=== PATIENT | male | born 1990 | race Caucasian/White ===

== ENCOUNTER 2017-11-03 16:21 | Inpatient (IN) | payer OTHER ==
[~2017-11-03] VITALS: Ht 170.2 cm; Wt 61.2 kg
--- NOTE | 2017-11-03 18:36 | ED PSYCHIATRIC COMPLAINT ---
History of Present Illness General Chief Complaint: Psychiatric Related Complaint Stated Complaint: PT IS SCHIZOPRENIC Source: patient Exam Limitations: no limitations Vital Signs & Intake/Output Vital Signs & Intake/Output Vital Signs Date Time Temp Pulse Resp B/P B/P Pulse O2 O2 Flow FiO2 Mean Ox Delivery Rate 11/04 1402 98.2 82 18 119/74 99 Room Air 11/04 1130 97.4 86 16 119/69 99 Room Air 11/04 0926 98.5 79 16 122/74 100 Room Air 11/04 0622 98.4 74 16 118/70 100 Room Air 11/03 2140 98.9 69 16 112/64 97 Room Air 11/03 1930 99.2 88 18 120/70 99 Room Air 11/03 1631 98.5 104 17 137/82 97 Room Air ED Intake and Output 11/04 0000 11/03 1200 Intake Total 0 Output Total 0 Balance 0 Intake, Oral 0 Output, Urine 0 Allergies Coded Allergies: NO KNOWN ALLERGIES (06/23/15) Reconcile Medications No Known Home Medications Triage Note: PT TO ED WITH MOTHER WITH REPORT OF RACING THOUGHTS, INSOMNIA X 48 HOURS, AUDITORY HALLUCINATIONS. NOT CURRENTLY PRESCRIBED ANY MEDS. PER MOTHER, HX OF SCHIZOAFFECTIVE DISORDER. Triage Nurses Notes Reviewed? yes HPI: Patient presents for evaluation of feeling confused today. He had a little trouble explaining himself and so additional history has been obtained from his mother who confirms that his mind was "racing" and that he "was fighting inside his head". He has been depressed and withdrawn and not eating much. Mother states he had similar episode about 2 years ago and was treated with Zyprexa with some improvement. The patient himself states that "earlier today he got a message through" and that the "whole day was all off" and he thought about "jumping off something". (Suzanne RIVERO,Inocente Alonso) Past History Travel History Traveled to [place] past 21 day No Medical History Any Pertinent Medical History? see below for history Neurological: NONE EENT: NONE Cardiovascular: NONE Respiratory: NONE Gastrointestinal: NONE Hepatic: NONE Renal: NONE Musculoskeletal: NONE Psychiatric: substance abuse, SCHIZOAFFECTIVE Endocrine: NONE Blood Disorders: NONE Cancer(s): NONE Surgical History Surgical History: non-contributory Psychosocial History Who do you live with Mother What is your primary language Botswanan Tobacco Use: Never used ETOH Use: denies use Illicit Drug Use: marijuana Family History Hx Contributory? No (uSzanne RIVERO,Inocente Alonso) Review of Systems Review of Systems Constitutional: Reports: no symptoms. EENTM: Reports: no symptoms. Respiratory: Reports: no symptoms. Cardiovascular: Reports: no symptoms. GI: Reports: no symptoms. Genitourinary: Reports: no symptoms. Musculoskeletal: Reports: no symptoms. Skin: Reports: no symptoms. Neurological/Psychological: Reports: see HPI. Hematologic/Endocrine: Reports: no symptoms. Immunologic/Allergic: Reports: no symptoms. All Other Systems: Reviewed and Negative (Suzanne RIVERO,Inocente Alonso) Physical Exam Physical Exam General Appearance: SEE BELOW Neurological/Psychiatric: SEE BELOW Comments: Gen.: Well-nourished, well-developed, no acute respiratory distress. Head: Normocephalic, atraumatic. Eyes: Normal inspection bilaterally Ears: Normal inspection bilaterally Nose: Normal inspection Throat/mouth : Moist mucosa Neck: Supple, full range of motion, no goiter Heart: Regular rate and rhythm, no murmurs rubs or gallops Lungs: Clear to auscultation bilaterally with normal air entry Chest: Nontender Back: Normal range of motion Abdomen: Soft, nontender, nondistended, normal bowel sounds Extremities: Normal range of motion grossly, equal radial pulses, no cyanosis clubbing or edema Neurologic: Cranial nerves grossly intact, speech is clear Skin: warm and dry Psychiatric: Calm, cooperative, no apparent delusions or hallucinations SAD PERSONS Done? deferred to crisis (Suzanne RIVERO,Inocente Alonso) Progress Differential Diagnosis: drug intoxication, bipolar disorder, personality disorder, schizoaffective disorder Plan of Care: Orders Procedure Date/time Status Regular Diet 11/04 D Active Regular Diet 11/04 B Complete Admit to inpatient psych 11/04 1347 Active Lab Add-on Test 11/04 1338 Active Patient Data - inpatient psych 11/04 1333 Active Admit to inpatient psych 11/04 1333 Active Patient Safety Monitor 11/04 0700 Active Patient Safety Monitor 11/04 0300 Active Vital Signs 11/04 UNK Active Nursing Misc 11/04 UNK Active Alternative Nursing Therapy 11/04 UNK Active Activity/Ambulation 11/04 UNK Active Patient Safety Monitor 11/03 2300 Active Add-on Test (ER Only) 11/03 2247 Active Intake & Output 11/03 1914 Active Patient Safety Monitor 11/03 1899 Active URINALYSIS 11/03 1899 Complete TSH REFLEX 11/03 185 Complete LIPID PANEL 11/03 185 Complete GLYCOSYLATED HGB 11/03 1852 Complete Patient Safety Monitor 11/03 183 Active URINE DRUG SCREEN FOR ER ONLY 11/03 183 Complete ETHANOL 11/03 183 Complete CBC WITHOUT DIFFERENTIAL 11/03 183 Complete BASIC METABOLIC PANEL 11/03 183 Complete ED CRISIS PSYCH CONSULT 11/03 183 Active Current Medications Sig/Marian Start time Last Medication Dose Stop Time Status Admin Olanzapine 10 MG 0800 11/05 08 CAN (Zyprexa) Olanzapine 15 MG AT BEDTIME 11/04 2100 AC (Zyprexa) Acetaminophen 650 MG Q6P PRN 11/04 1345 AC (Tylenol) Al Hydroxide/Mg 30 ML Q4-6 PRN PRN 11/04 1345 AC Hydroxide (Maalox Plus) Benztropine Mesylate 1 MG Q6P PRN 11/04 1345 AC (Cogentin 1 MG Tablet) Benztropine Mesylate 1 MG Q6P PRN 11/04 1345 AC (Cogentin) Gabapentin 300 MG Q6P PRN 11/04 1345 AC (Neurontin) Haloperidol 5 MG Q6P PRN 11/04 1345 AC (Haldol) Haloperidol 5 MG Q6P PRN 11/04 1345 AC (Haldol) Lorazepam 2 MG Q6P PRN 11/04 1345 AC (Ativan) Magnesium Hydroxide 30 ML AT BEDTIME PRN 11/04 1345 AC (Milk Of Magnesia) Trazodone HCl 50 MG AT BEDTIME NEED.. 11/04 134 AC (Desyrel) Olanzapine 10 MG ONCE ONE 11/03 2044 CAN (ZyPREXA) 11/03 2045 Laboratory Tests 11/03/171899: Urine Color YEL, Urine Clarity CLEAR, Urine pH 6.0, Ur Specific [place] 1.015, Urine Protein NEG, Urine Ketones NEG, Urine Nitrite NEG, Urine Bilirubin NEG, Urine Urobilinogen 0.2, Ur Leukocyte Esterase NEG, Ur Microscopic EXAM NOT REQUIRED, Urine Hemoglobin NEG, Urine Glucose NEG 11/03/171852: Anion Gap 13, Estimated GFR > 60, BUN/Creatinine Ratio 15.7, Glucose 141 H, Hemoglobin A1c 5.4, Calcium 10.2, Triglycerides 48, Cholesterol 175, LDL Cholesterol, Calc 120, HDL Cholesterol 46, Cholesterol/HDL Ratio 4, TSH &T3 & Free T4 Intrp 1.130, CBC w Diff MAN DIFF ORDERED, RBC 4.35 L, MCV 92.2, MCH 31.5 H, MCHC 34.2, RDW 13.3, MPV 8.7, Gran % 87.6 H, Lymphocytes % 6.5 L, Monocytes % 5.2, Eosinophils % 0, Basophils % 0.7, Absolute Granulocytes 18.6 H , Segmented Neutrophils 90 H, Band Neutrophils 3, Absolute Lymphocytes 1.4, Lymphocytes 5 L, Monocytes 2, Absolute Monocytes 1.1 H, Absolute Eosinophils 0 , Absolute Basophils 0.2, Platelet Estimate ADEQUATE, Normocytic RBCs VERIFIED, Normochromic RBCs VERIFIED, Fld Total RBCs Counted 100, Serum Alcohol < 10.0 11/03/17 1820: Urine Opiates Screen < 100, Methadone Screen < 40, Barbiturate Screen < 60, Ur Phencyclidine Scrn < 6.00, Amphetamines Screen < 100, U Benzodiazepines Scrn < 85, Urine Cocaine Screen < 50, Urine Cannabis Screen > 80.00 H Comments: 11/03/2017 7:26:16 PM patient signed out to Dr. Bowden at [employer]. (Suzanne RIVERO,Inocente Alonso) Hand-Off Endorsed To: Abelino Alejo MD Endorsed Time: 0700 Pending: other (crisis re-eval) (Leroy Bowden MD) Departure Departure Disposition: STILL A PATIENT Condition: Stable Clinical Impression Primary Impression: Confusion Referrals: Efren Caballero APRN (PCP/Family) Departure Forms: Customer Survey General Discharge Information Prescriptions: Current Visit Scripts No Known Home Medications (Suzanne RIVERO,Inocente Alonso) Departure Comments Patient seen by crisis and to be admitted to psychiatry. Medically cleared. (Abelino Alejo MD)
[2017-11-03 19:06] LABS: ABSOLUTE BASOPHIL COUNT 0.2 /CUMM (0.0-0.2); ABSOLUTE EOSINOPHIL COUNT 0 /CUMM (0.0-0.7); ABSOLUTE GRANULOCYTE CT 18.6 /CUMM (1.4-6.5); ABSOLUTE LYMPH COUNT 1.4 /CUMM (1.2-3.4); ABSOLUTE MONOCYTE COUNT 1.1 /CUMM (0.10-0.60); BASOPHIL % 0.7 % (0.0-2.0); EOSINOPHIL % 0 % (0-5); GRANULOCYTE % 87.6 % (42.2-75.2); HEMATOCRIT 40.1 % (42-52); MEAN CORPUSCULAR HGB 31.5 PG (27.0-31.0); MEAN CORPUSCULAR HGB CONC 34.2 G/DL (33.0-37.0); MEAN CORPUSCULAR VOLUME 92.2 FL (80.0-94.0); MEAN PLATELET VOLUME 8.7 FL (7.4-10.4); PLATELET COUNT 321 /CUMM (130-400); RBC DISTRIBUTION WIDTH 13.3 % (11.5-14.5); RED BLOOD CELL CT 4.35 /CUMM (4.70-6.10); WHITE BLOOD CELL COUNT 21.3 /CUMM (4.8-10.8)
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
--- NOTE | 2017-11-03 23:13 | RADIOLOGY REPORT ---
EXAMINATION: XR CHEST CLINICAL INFORMATION: Leukocytosis COMPARISON: Chest x-ray 11/07/2012 TECHNIQUE: 2 views of the chest were obtained. FINDINGS: No significant abnormality is noted involving the heart, lungs, mediastinum, bony thorax or soft tissues. IMPRESSION: Unremarkable examination.
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
[2017-11-04 20:03] VITALS: BP 148/96
--- NOTE | 2017-11-04 22:11 | History & Physical ---
General Information and HPI MD Statement: I have seen and personally examined SUMMER SAM and documented this H&P. The patient is a 27 year old M who was admitted for disorganized behavior due to bipolar manic episodes. Source of Information: patient Exam Limitations: no limitations History of Present Illness: Mr. Morris is 27 years old male who was admitted for various psychiatric complaints(see the psychiatric history and physical). Patient has a history of bipolar disorder. With prior admissions to the [facility] hospital. Denies having any medical issues. Patient had multiple teeth pulled approximately 4 weeks ago. He had false teeth and dental fillings. Patient complains some nasal congestion and stuffiness. He also admitted taking 3 pills of amoxicillin. Denied having any fever, cough, shortness of breath or other complaints. He had some abrasion over his left leg below the knee due to fall recently. Upon reviewing his labs noted white cells were around 20,000. Patient denied having any abdominal symptoms, urinary symptoms. Allergies/Medications Allergies: Coded Allergies: NO KNOWN ALLERGIES (06/23/15) Home Med list No Known Home Medications Compliance With Home Meds: GOOD Past History Travel History Traveled to [place] past 21 day No Medical History Blood Transfusion Hx: No Neurological: NONE EENT: NONE Cardiovascular: NONE Respiratory: NONE Gastrointestinal: NONE Hepatic: NONE Renal: NONE Musculoskeletal: NONE Psychiatric: substance abuse, SCHIZOAFFECTIVE Endocrine: NONE Blood Disorders: NONE Cancer(s): NONE History of MRSA: No History of VRE: No History of CDIFF: No Isolation History: Standard Surgical History Surgical History: non-contributory Past Family/Social History Psychosocial History Where do you live? Home ETOH Use: denies use Illicit Drug Use: marijuana Review of Systems Review of Systems Constitutional: Denies: chills, diaphoresis, fever, malaise. EENTM: Reports: nasal congestion. Cardiovascular: Denies: no symptoms. Respiratory: Denies: no symptoms. GI: Denies: no symptoms. Genitourinary: Denies: no symptoms. Musculoskeletal: Denies: no symptoms. Skin: Denies: no symptoms. Neurological/Psychological: Denies: no symptoms. Hematologic/Endocrine: Denies: no symptoms. Exam & Diagnostic Data Last 24 Hrs of Vital Signs/I&O Vital Signs Date Time Temp Pulse Resp B/P B/P Pulse O2 O2 Flow FiO2 Mean Ox Delivery Rate 11/04 2002 97.9 78 148/96 11/04 1946 97.0 78 20 129/73 11/04 1402 98.2 82 18 119/74 99 Room Air 11/04 1130 97.4 86 16 119/69 99 Room Air 11/04 0926 98.5 79 16 122/74 100 Room Air 11/04 0622 98.4 74 16 118/70 100 Room Air Intake & Output 11/04 1600 11/04 0800 11/04 0000 Intake Total 0 Output Total 0 Balance 0 Intake, Oral 0 Output, Urine 0 Physical Exam General Appearance Alert, Oriented X3, Cooperative, No Acute Distress Skin No Breakdown, abrasion on below left knee HEENT Atraumatic, PERRLA, EOMI Neck Supple, No JVD, No thryomegaly, +2 Carotid Pulse wo Bruit, No LAD Lymphatic Axillary nl, Cervical nl Cardiovascular Regular Rate, Normal S1, Normal S2, No Murmurs Lungs Clear to Auscultation, Normal Air Movement Abdomen Normal Bowel Sounds, Soft, No Tenderness Neurological Exam Findings: Normal Gait, Normal Speech, Strength at 5/5 X4 Ext, Normal Tone, Cranial Nerves 3-12 NL Cranial Nerves II through XII: intact Extremities No Clubbing, No Cyanosis, No Edema Vascular Normal Pulses Last 24 Hrs of Labs/Rambo: WBC 20. normal CXR, Normla UA Assessment/Plan Assessment: Assessment and plan: #Bipolar 1 disorder rule out schizoaffective disorder-per psychiatry. #Leukocytosis-no clear etiology. Could be reactive. Normal UA, normal chest x- ray. Will repeat the CBCs. #recent dental extraction-no acute issues. #Nasal congestion-subjective. No need for antibiotics. Thank you for the consult. Will follow up the CBC. As Ranked By This Provider Problem List: 1. Bipolar 1 disorder with moderate perry 2. Leucocytosis Miscellaneous Miscellaneous Documentation Attending Case Discussed With: Juvenal Klein MD Primary Care Physician: Efren Caballero APRN Patient sees these Specialists none Level of Patient Care: DELBERT Mccauley
[2017-11-04 23:05] LABS: ABSOLUTE BASOPHIL COUNT 0 /CUMM (0.0-0.2); ABSOLUTE EOSINOPHIL COUNT 0.1 /CUMM (0.0-0.7); ABSOLUTE GRANULOCYTE CT 8.7 /CUMM (1.4-6.5); ABSOLUTE LYMPH COUNT 2.3 /CUMM (1.2-3.4); ABSOLUTE MONOCYTE COUNT 1.1 /CUMM (0.10-0.60); BASOPHIL % 0.4 % (0.0-2.0); EOSINOPHIL % 0.9 % (0-5); GRANULOCYTE % 70.6 % (42.2-75.2); HEMATOCRIT 41.6 % (42-52); MEAN CORPUSCULAR VOLUME 93.9 FL (80.0-94.0); MEAN PLATELET VOLUME 8.6 FL (7.4-10.4); PLATELET COUNT 299 /CUMM (130-400); RBC DISTRIBUTION WIDTH 13.9 % (11.5-14.5); RED BLOOD CELL CT 4.43 /CUMM (4.70-6.10); WHITE BLOOD CELL COUNT 12.3 /CUMM (4.8-10.8)
[2017-11-05 08:02] VITALS: BP 140/90
--- NOTE | 2017-11-05 14:03 | SOCIAL WORKER PROG NOTE PSYCH ---
Social Work Progress Note Progress Note Social Hx. attempted, however per CAS Melara the patient is paranoid today and not appropriate for evaluation at this time. The social Hx. will be attempted again later today or tomorrow.
--- NOTE | 2017-11-05 14:28 | IOP TREATMENT PLAN INIT ---
Psych (IOP) Initial [place] Plan Date of Group or Service: 11/05/17 Time of Group or Service: 1000 Area of Focus #1: Goal: Objective (expressed in measurable terms, steps to achieve the goal & measureable target date): Therapeutic Interventions (include frequency and staff): 27 years old single white man patient was seen on the unit today. He was calm and was able to discuss the issues surrounding his hospitalization and admits to having had racing thoughts in his mind with a history of previous hospitalization around 2 years ago for close to 2 weeks. In this hospital he reports of having racing thoughts and unable to sleep better prior to current hospitalization and denies of any thoughts to hurt himself or others and also denies of any command hallucinations. He does admit to having had pneumonia and was given antibiotics which accounts for the high white count. He reports of staying with his mom and also reports of having a job and likes to go back after discharge and was not able to discussed his relationship and social adjustment problems in the community but elects to continue current dosage of medications and to improve sleep and to improve coping skills to deal with frustrations while in the community he denies of any allergies to any substances or medications he does have a college of having been on Zyprexa at a higher dose and apparently was not consistent in taking his medications in the past he was seen by the medical attending and clearly has no active medical issues except for improving white count secondary to his antibiotic being taken orally. Patient Patient does acknowledge a history of family's 2 hypertension and denies of being on any medications for blood pressure readings and some of the readings reviewed in this current admission shows systolic and diastolic numbers in the stage I hypertension and has been recommended to have it followed up with primary care physician after returning to the community. Review of the patient's record from the emergency department because his team evaluation about his agitated behaviors needing as needed medications to reduce his delusional beliefs and psychotic thought processes with good affect from the medications given in the emergency department history of the present illness, patient reports of having any issues relating to his racing thoughts 2 years ago and being admitted at this inpatient unit in [facility] with good response to Zyprexa. He reports of having had a few jobs working in different establishments including [employer] and currently works in a [employer] company and likes to go back to work after his stability from this admission he reports to not being consistent with his medications probably needs a good follow-up care to minimize future episodes after returning to the community Past psychiatric history Patient is very vague about his psychiatric problems and denies of having had any major problems with any suicidal or homicidal thoughts in the past does acknowledge smoking marijuana denies ever having had any major problems with alcohol or nicotine he reports this makes smoking cigars occasionally and does not appear to have any need for further support on these 2 aspects relating to nicotine or alcohol he does have issues with relationships and did not want to elaborate about those issues may need further review of his problems with relationships. Patient denies ever having had any home medications prior to hospitalization except for his antibiotics given to him for pneumonia in the community that was the reason for his elevated white count which has been responding to the current antibiotic therapy Past medical history nothing of significance reported there is no history of any allergy to medications or food issues reported there is a family history of hypertension. Patient was seen by medical attending and was cleared of any major medical issues except for the leukocytosis probably secondary to pneumonia which is responding well to his current antibiotic regimen. Psychiatric family social history family history nothing of significance Social history patient lives with his mother and likes to go back to his work after his current discharge clearly warrants the good referral for outpatient therapy in the community after his discharge Healthy behavior screening Patient denies of any tobacco use problems and reports a sick smoking cigars occasionally and denies ever having any addiction to cigars Patient also denies of any problem with alcohol his blood alcohol level was less than 10 and does not report him needing any help with alcohol however the patient reports of occasional use of marijuana and very rarely he had used K2 and does not like their effect on his mind and at present he denies of any issues with substance use disorder and nicotine dependence needing further referable other interventions. Metabolic screening. Patient has normal lipid profile he had a random sugar 141 and hemoglobin A1c within normal range but he should be monitored for weight gain issues in the future as he is on medication that could increase his appetite and weight gain in the future .HbA1c 5.4 Patient is aware of the need for portion control and increased walking and frequent small eating to minimize excessive weight gain which could lead to metabolic syndrome status with weight gain, and increased cholesterol, hyperlipidemia, prediabetes and diabetes. He has had some elevated blood pressure readings also had readings within normal range and is advised to have this followed up in the community after his discharge Exam and plan, Mental status examination patient is a thinly built of average height and male individual who was friendly and cooperative during the interview he was dressed with a T-shirt and pajama and appeared to have fair plus unhygienic habits orally showed blunted affect without major behavioral changes he showed normal gait patterns without any unusual motor patterns noted. 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 in the community but does like to go back to work after his return to the community and wants a good referral as he was not consistently taking his medications after his last discharge from this program around 2 years ago is alert and oriented to time place and person and denies of any thoughts to hurt himself or others denies of any intrusive thoughts or any racing thoughts that was noted prior to his hospitalization and stabilization in the emergency department with hope before arrival to the inpatient unit he has fair insight and judgment into neutral situations and is willing to cooperate with treatment recommendations and aftercare planning he has impaired memory for recent and remote events and appears to be of average intelligence patient assets and strengths strengths Patient is able to express his feelings and has good eye contact and does like his job and has no thoughts to hurt himself or others and he is willing to cooperate with treatment recommendations impression 27 years old single white male individual admitted for bizarre behaviors racing thoughts and needed as needed medications in the emergency department and has had Zyprexa in the past with good affect and will be continued at current dosage who will monitor the metabolic syndrome pattern meters and will try to recommend appropriate outpatient clinic for follow-up care in the community after his discharge DSM-V diagnosis bipolar disorder with psychotic features recurrent Cannabis use disorder mild History of hypertension treatment plan Continue the Zyprexa at the current dose and recommend the patient to eat small meals with generous fluids and avoiding sugary stuff and watch his weight and inform the treatment team after his discharge and increasing weight gain for them to monitor the medication dose and change to another medication with less weight gaining properties dictated by Dr. Watson. Patient Signature Date/Time: DSM5/PS Stressors/Medical Prob Diagnosis' (DSM 5, Stressors, Medical): F31.2 Bipolar I disorder, MRE manic with psychosis r/o schizoaffective disorder bipolar type, F12.20 Cannabis use disorder, severe; No medical; Relationships with peers, primary support, occupational Current GAF: 25 Comments: pt has previously done well taking Zyprexa and may be open to restarting it.
[2017-11-05 20:09] VITALS: BP 137/82
[2017-11-06 07:33] VITALS: BP 137/81
--- NOTE | 2017-11-06 14:58 | CP SOUTH PROGRESS NOTE PSYCH ---
Psych (Inpt) Progress Note Progress Note Include the following elements, when applicable: Involvement in the active treatment of the patient with behavioral observations of the patient and the patient's response to the treatment. Review of the ongoing treatment process in the context of the treatment plan. Indication of how multi-disciplinary staff members are carrying out the treatment plan. Plans for future interventions and recommendations for revision of the treatment plan. Liaison with other physicians/providers. Progress Note: 27 years old single white male patient was seen on the unit today. He was much, and I was able to sit down and talk about his ability to focus and himself and reports of worrying about other people which had led to his racing thoughts resulting in his hospitalization. He was able to maintain good eye contact and was able to maintain meaningful communication and hopes to return back to his job and continues outpatient follow-up care at [facility] behavioral health program in the community. He denies of any thoughts to hurt himself or others he is alert and oriented to time place and person and is able to ambulate well without any need for assistive devices and he is fairly improving insight and is willing to assist in his care and return to community was suited stable for discharge and follow up with outpatient clinic. Diagnostic impression bipolar disorder manic with psychotic features Plan to continue current olanzapine in the evenings and concur with the treatment recommendations for discharge once stable and follow-up care at the [facility] in behavioral health unit dictated by , thank you
[2017-11-06 19:46] VITALS: BP 147/74
[2017-11-07 07:51] VITALS: BP 142/90
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
--- NOTE | 2017-11-07 17:00 | SOCIAL WORKER PROG NOTE PSYCH ---
Social Work Progress Note Progress Note This speech writer met with patient. He appeared to struggle with focusing on the conversation and appeared easily distracted by his thoughts. He stated that he came to the hospital "to make my mom happy" and "I couldn't get my thoughts straight." He gave vague responses throughout the conversation. Early in the conversation, patient commented towards this speech writer, "I'm sorry you hate me." He was unable to identify what triggered this thought or what led him to believe that this speech writer "hated" him. Patient stated that he lives with his mother and brother. He stated that he had previously been in treatment with [facility] ("when I was in my manic state.") as well as [facility]. He stated that he smokes MJ daily, "3-4 cigars", and uses alcohol sporadically. He was unable to give a pattern of use regarding the alcohol. Patient denied SI/HI/hallucinations. He denied any current legal or DCF involvement. Patient was agreeable to a family meeting with his mother and brother. Patient denied SI/HI/hallucinations. He identified a safety plan to "go to the hospital." After discussing with Srinivas, this speech writer was informed of CCT, which he agreed to sign. Patient was scheduled a Lyft ride to [employer].
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
--- NOTE | 2017-11-07 17:48 | SOCIAL WORKER PROG NOTE PSYCH ---
Social Work Progress Note Progress Note [facility] concurrent review entered: Determination Status: PENDED The services requested require additional review. You will be contacted regarding the status of this request if further information is needed. An authorization decision will be made within the required timeframes and details of that decision may be found under the member's authorization history. Member Name Member ID Member Subscriber Name Subscriber ID SUMMER LuisMary SAM [id number] 1990 SUMMER SAM [id number] Pended Authorization # Client Authorization # Type of Request [id number] CONCURRENT Date of Admission/ Start of Services Requested From Submission Date 11/04/2017 11/07/2017 11/07/2017 Level of Service Type of Service Level of Care Type of Care INPATIENT/OC Mental Health Inpatient Inpatient [facility]
[2017-11-07 20:16] VITALS: BP 148/78
[2017-11-08 07:38] VITALS: BP 153/78
--- NOTE | 2017-11-08 13:24 | SOCIAL WORKER PROG NOTE PSYCH ---
Social Work Progress Note Progress Note SUMMER SAM [id number] 1990 SUMMER SAM [id number] Pended Authorization # Client Authorization # Type of Request [id number] CONCURRENT Date of Admission/ Start of Services Requested From Submission Date 11/04/2017 11/08/2017 11/08/2017
--- NOTE | 2017-11-08 15:21 | SOCIAL WORKER PROG NOTE PSYCH ---
See Addendum Social Work Progress Note Progress Note Psychiatric CHW Note Met w/pt to discuss visiting nurse services through [facility]. Pt was unsure at the time of the meeting if he is interested in this service due to previous experience of nurses not showing up at the time they were scheduled. He also stated that he feels that he feels better that he is now taking the medication and how it is helpful which will make him continue to take the meds as prescribed. He also stated concern that the visiting nurses schedule may interfere with his work schedule. Pt was notified that this will be discussed again tomorrow so he can have time to think it over. Pt seemed a little confused during this meeting and continously apologized for this. Petra Lozano (Tish)
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
--- NOTE | 2017-11-08 16:34 | SOCIAL WORKER PROG NOTE PSYCH ---
Social Work Progress Note Progress Note Diana Monroy (PA Student) and this typewriter assembler met with the patient. Patient reported "occasional problems with focus." Patient shared that his mother and grandmother have visited. He reported his mood as "stable" and rated his anxiety at a 3/10 and anxiety at a 1/10 (with 10 being the worst). He denied feeling helpless, hopeless, worthless. He stated that he feels guilty about "certain aspects." Patient denied SI or having thoughts wishing he was . He denied HI/AH/VH. When asked if he feared if there were people out to harm him, he replied, "not sure." He expressed concerns for his mother's safety and fearing that individuals were out to harm her. Dr. Klein discussed medications, including questions and concerns. We discussed IOP as well as visiting nurse services with the patient. Patient appeared willing to consider both. Patient is agreeable to a family meeting with his mother. Diana Monroy (PA Student) and this typewriter assembler met with the patient. His mother, Penny, attended by phone (due to difficiulties with transportation; [phone]) for a family meeting. Patient appeared anxious and concerned about noises that we could hear through the door from the inpatient unit. Patient expressed concerns for his mother's safety during this meeting, to which she provided assurance that she was safe. Dr. Klein discussed medications, including questions and concerns. He also discussed risks on ongoing MJ use. Upon discussing IOP, patient's mother expressed concerns about how this would conflict with his work schedule as well as concerns about patient's interactions with other IOP patients. Specifically, she expressed concerns of peers taking advantage of the patient. Patient's mother was agreeable to a visiting nurse. We discussed anticipated discharge date of 11/10/17. Patient's mother did not express any concerns regarding discharge. Patient's mother stated that she believed that the patient might no longer have insurance as of November 14, 2017. This typewriter assembler left a vm for Riana at the business office (ext. [phone]) regarding this.
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
[2017-11-08 19:54] VITALS: BP 151/86
[2017-11-09 07:54] VITALS: BP 137/50
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
--- NOTE | 2017-11-09 11:16 | SOCIAL WORKER PROG NOTE PSYCH ---
Social Work Progress Note Progress Note This tech writer met with patient. He reported that he felt the family meeting went well yesterday, however, continues to worry for his mother's safety. He discussed his concerns are based on an excerpt that he read in a book. He refused to elaborate further or provide the name of the book. Patient reported poor sleep last night with frequent awakenings due to the staff checks. His topic transitioned to his hairstyle, discussing being unsure if he should continue wearing ella or remove them - "I just don't know what they mean." Patient was informed that this tech writer spoke with the business office and was provided with a phone number regarding his insurance. He asked that this tech writer provide this number to his mother. Patient denied SI/HI/hallucinations. He continues to present as disorganized. Patient is agreeable to IOP if he is able to go to the evening IOP due to his work schedule. He is also agreeable to a visiting nurse. This tech writer received a message from the business office stating that the patient can call [place] [employer] [facility] [employer] [phone], option 1, then option 0 regarding his [employer] insurance. This tech writer spoke with the patient's mother, Penny Pitts, to provide her with the phone number and also informed that the patient would also be provided with the phone number. Ms. Pitts stated that the patient has an appointment with his prescriber at [facility] on 11/14/17 at 2pm. She was informed that the patient is agreeable to a referral to the evening IOP. Ms. Pitts expressed concern that he would follow through with IOP and stated that she would speak with him about it as well. Upon providing the patient with the phone number to the [place] [employer], patient stated that "the number didn't look right" and referred to "this as a game." SW will follow up with the patient tomorrow about calling tomorrow.
--- NOTE | 2017-11-09 15:56 | SOCIAL WORKER PROG NOTE PSYCH ---
See Addendum Social Work Progress Note Progress Note Psychiatric CHW Note E-mailed Oliva and Alysha at 3:50pm requesting IOP intake appt. Petra Lozano (Tish)
[2017-11-09 19:56] VITALS: BP 126/77
[2017-11-10 08:17] VITALS: BP 138/78
--- NOTE | 2017-11-10 08:43 | SOCIAL WORKER PROG NOTE PSYCH ---
See Addendum Social Work Progress Note Progress Note Psychiatric CHW Note Pt has a [facility] IOP intake appt scheduled for 1:15pm on 11.15.17. Petra Lozano (Tish)
--- NOTE | 2017-11-10 14:05 | SOCIAL WORKER PROG NOTE PSYCH ---
Social Work Progress Note Progress Note He speaks softly, but was oriented and slightly paranoid, had relevant concerns about getting back to work, and worrying that this could impact his employment. Asked a few times about connecting to the state (he had failed to renew insurance) after our conversation Reema was helping him with this, as he stated he was nervous about giving his social security number over the phone in the group room (reasonable). He has an appointment with Zechariah Jolley APRN 11/14/17 at 2pm and sees a social media assistant at [facility] as well "Brendan" Mom and pt intend to stick with this level of outpatient care, and at this time Mom thinks he will be med compliant she states the idea of him working and attending IOP may be too much to manage for him. She is visiting him tonight and is prepared for his discharge Tuesday. She recognizes some improvements when she spoke with him earlier today.
--- NOTE | 2017-11-10 17:06 | CP SOUTH PROGRESS NOTE PSYCH ---
Psych (Inpt) Progress Note Progress Note Include the following elements, when applicable: Involvement in the active treatment of the patient with behavioral observations of the patient and the patient's response to the treatment. Review of the ongoing treatment process in the context of the treatment plan. Indication of how multi-disciplinary staff members are carrying out the treatment plan. Plans for future interventions and recommendations for revision of the treatment plan. Liaison with other physicians/providers. Progress Note: Case and treatment plan discussed in team meeting. Staff reports that the patient is more organized in his thinking. Carrying around some papers which he is concerned about. Has trouble expressing himself. Patient seen at 10:50 AM. He was in group prior to meeting with me in office. States he feels "just a little behind in things. Was trying to graham myself into things." Patient speaks in vague generalities. I asked about his educational background. Reports he graduated from [employer]. 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 He states this was because the teacher thought he was misspelling dinosaurs' names but he denies that. Mood: "Just feel a little stuck at this point." Affect is calm and blunted. States he gets anxious from time to time and feels that his brain is working on other stuff. Anxiety is maybe 3-4/10 and sad mood is 2-3/10 because he feels he is affecting everybody out there with his stuff. Denies feeling hopeless but also states that he is going back and forth about that. Denies feeling helpless or worthless. Feels guilty about a girlfriend that he feels he should have stayed with. Patient seems to have a lot of ambivalence. His feelings about his ex-girlfriend seem related to possible ideas of reference from [employer]. "I guess I was over- interpreting things." Denies active and passive suicidal ideation. Denies homicidal ideation. Denies auditory and visual hallucinations. He feels that he failed with trusting too many people but denies paranoid ideation at this point regarding his mother getting hurt. Reports he had middle of the night awakening x1. Describes appetite and energy as stable. Patient is tolerating increased dose of Zyprexa but it makes him feel more inside his head and less able to to take action. Basically refusing IOP, stating he is not sure it is what he needs. IMPRESSION: Slow progress. Continue present treatment plan. Anticipate discharge tomorrow to home and mother.
[2017-11-10 19:31] VITALS: BP 158/95
[2017-11-11 07:46] VITALS: BP 137/85
--- NOTE | 2017-11-11 09:00 | SOCIAL WORKER PROG NOTE PSYCH ---
Social Work Progress Note Progress Note Met with Arturo today. He is disheveled, stated he is having alot of thoughts. Per staff his thoughts are clearer. He was in group this morning. His thoughts remain somewhat disorganized at times, but he is able to be redirected. He is not interested in [facility]. He wants to follow-up with [facility]. He has an intake on 11/14/17 and 11/16/17 He denies SI/HI, no AH/VH. Follow-up appointments [facility] - 11/14/17 at 2pm with Zechariah Jolley APRN (medication intake) and 11/16/17Tues at 12noon with Brendan Marquis LPC. TC- to Arturo's Mother, Penny - left a voicemail her son is ready to discharge today. She returned my call - was able to discuss recommendation for Dual IOP. She stated she prefers he return to outpatient at [facility]. Informed her he can always go to IOP if he needs it. She agreed. Also discussed safety planning with his Mother - call 911 or go to the ED if his symptoms worsen or becomes psychotic, SI/HI or AH/VH. TC - [facility] in [place] - #[phone] asked for therapist Brendan Marquis LPC - he wasn't available - left a message. He returned my call left voicemail. I called him again and left a voicemail indicating recommendation is for IOP. Also, Dr. Klein spoke with Zechariah Jolley APRN of [facility] ([place] [facility]) and gave recommendation IOP, but Patient is refusing.
[2017-11-11] MEDS ORDERED: ZYPREXA20 M1 PO (10:25)
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
--- NOTE | 2017-11-11 16:05 | IP INCIDENTAL NOTE PSYCH ---
Incidental Note Notation: Case discussed with Stanley Jolley APRN.
--- NOTE | 2017-11-11 17:56 | SOCIAL WORKER PROG NOTE PSYCH ---
Social Work Progress Note Faxed Referral(s) 1 Referred To: [facility] Transition of Care Documents sent: Health Summary Faxed to: [facility] [place] Fax #: [phone] Faxed by: Keila Faye LCSW Date faxed: 11/11/17 Time Faxed: [phone] Faxed Referral(s) 2 Referred To: [facility] Transition of Care Documents sent: Health Summary Faxed to: [facility] Fax #: [phone] Faxed by: Keila Faye LCSW Date faxed: 11/11/17 Time Faxed: [phone]
== END 2017-11-11 14:45 | DRG 751 ==
LOC: ERH 16:21 → ERHI 11-04 13:47 → CP SOUTH 11-04 13:47
PROVIDERS: Emergency Medicine; Hospitalist
DX: F29 Unspecified psychosis not due to a substance or known physiological condition (principal); F12.90 Cannabis use, unspecified, uncomplicated
CPT/HCPCS: 36415; 71046; 80307; 81003; 96372; G0463; G0480